=== PATIENT | female | born 1935 | race Caucasian/White ===

== ENCOUNTER 2022-11-28 15:05 | Outpatient (CLI) | payer MEDICARE, SELFPAY ==
[2022-11-28 16:20] LABS: ALT 16 U/L (14-59); AST 16 U/L (15-37); Albumin 4.4 g/dL (3.4-5.0); Alkaline Phosphatase 73 U/L (46-116); Anion Gap 9.5 mmol/L (3-11); BUN 11 mg/dL (7-18); Bilirubin, Total 0.6 mg/dL (0.2-1.0); CO2 27.5 mmol/L (21.0-32.0); CREATININE 0.8 mg/dL (0.55-1.02); Calcium 9.5 mg/dL (8.5-10.1); Chloride 99 mmol/L (98-107); Estimated GFR 71.71 (mL/min/1.73m2); Glucose 134 mg/dL (74-106); PTT Activated 26.5 sec (21.5-31.9); Potassium 3.9 mmol/L (3.5-5.1); Sodium 136 mmol/L (136-145); TSH 2.71 uIU/mL (0.36-3.74); Total Protein 7.1 g/dL (6.4-8.2); Uric Acid 4.4 mg/dL (2.6-6.0)
[2022-11-28 16:24] LABS: Abs Immature Grans 0.03 10^3/uL (0.0-0.06); Absolute Basophil Count 0.07 10^3/uL (0.0-0.2); Absolute Eosinophil Count 0.08 10^3/uL (0.0-0.7); Absolute Lymphocyte Count 0.76 10^3/uL (1.2-3.4); Absolute Monocyte Count 0.53 10^3/uL (0.1-0.8); Absolute Neutrophil Count 7.99 10^3/uL (1.2-6.7); Basophils % 0.7; Eosinophils % 0.8; HCT 41.9 % (36.0-46.0); HGB 14.4 g/dL (11.2-15.7); Immature Grans % 0.3; MCH 29.6 pg (27.0-33.0); MCHC 34.4 % (32.0-36.0); MCV 86 fL (80-95); MPV 10.6 fL (8.0-11.0); Monocytes % 5.6; Neutrophils % 84.6; Platelet Count 601 10^3/uL (130-400); RBC 4.87 10^6/uL (3.93-5.22); RDW 15.6 % (11.7-14.6); RDW-SD 45.4 fL; WBC 9.46 10^3/uL (4.4-10.8)
[2022-11-28 16:28] LABS: C-Reactive Protein < 0.05 mg/dL (0.0-0.3)
[2022-11-28 16:50] LABS: ESR 4 mm/hr (0-30)
== END 2022-11-28 15:06 | disposition home or self-care (01) ==
LOC: LBO 15:08
PROVIDERS: Visit Provider Nurse Practitioner Family
DX: M79.671 Pain in right foot; M79.672 Pain in left foot; R09.89 Other specified symptoms and signs involving the circulatory and respiratory systems; R73.09 Other abnormal glucose
CPT/HCPCS: 36415; 80053; 85652; 84443; 84550; 85025; 85730; 86140; 93971

== ENCOUNTER 2022-11-28 15:11 | Outpatient (CLI) | payer MEDICARE, SELFPAY ==
--- NOTE | 2022-11-28 14:00 | DI.US_ITS ---
Exam(s) US LOWER EXTREMITY VENOUS LT EXAM: US LOWER EXTREMITY VENOUS LT CLINICAL HISTORY: evaluate DVT M79.672 PAIN LEFT FOOT R09.89 M79.673. TECHNIQUE: Lower extremity venous ultrasound performed using grayscale, color-flow, and spectral Do ppler analysis. COMPARISON: No exams were available for comparison FINDINGS: The common femoral, femoral and popliteal veins demonstrate normal compressibility, augmentation, and color Doppler. The posterior tibial veins are patent. No saphenous vein thrombosis or other superfi cial venous thrombosis is seen. No hematoma or Morton's cyst is seen. IMPRESSION: Negative lower extremity ultrasound. No evidence of DVT. DATA REPOSITORY:
== END 2022-11-28 15:31 ==
PROVIDERS: Visit Provider Nurse Practitioner Family
DX: M79.672 Pain in left foot (principal); R09.89 Other specified symptoms and signs involving the circulatory and respiratory systems
CPT/HCPCS: 93971

== ENCOUNTER → 2023-04-15 10:36 | Outpatient (BNVA) | payer MEDICARE, SELFPAY | PROVIDERS: Referring Provider Podiatrist; Visit Provider Physical Therapy Assistant | DX: I73.9 Peripheral vascular disease, unspecified (principal); M79.672 Pain in left foot; M79.671 Pain in right foot | CPT/HCPCS: 93922 ==

== ENCOUNTER → 2023-12-08 07:58 | Outpatient (BNVA) | payer MEDICARE, SELFPAY | PROVIDERS: Visit Provider Podiatrist | DX: M76.61 Achilles tendinitis, right leg (principal); M67.01 Short Achilles tendon (acquired), right ankle; M67.02 Short Achilles tendon (acquired), left ankle; M19.072 Primary osteoarthritis, left ankle and foot; M19.071 Primary osteoarthritis, right ankle and foot; E79.0 Hyperuricemia without signs of inflammatory arthritis and tophaceous disease; M79.671 Pain in right foot; M79.672 Pain in left foot | CPT/HCPCS: 99214; 73630 ==

== ENCOUNTER 2023-12-08 10:34 | Outpatient (CLI) | payer MEDICARE, SELFPAY ==
[2023-12-08 10:12] LABS: Uric Acid 3.5 mg/dL (2.6-6.0)
== END 2023-12-08 10:35 | disposition home or self-care (01) ==
LOC: LBO 10:35
PROVIDERS: Visit Provider Podiatrist
DX: E79.0 Hyperuricemia without signs of inflammatory arthritis and tophaceous disease (principal)
CPT/HCPCS: 36415; 99214; 73630; 84550

== ENCOUNTER → 2023-12-08 10:47 | Outpatient (CLI) | payer MEDICARE, SELFPAY ==
--- NOTE | 2023-12-08 08:30 | DI.RAD_ITS ---
Exam(s) XR FOOT RT COMPLETE EXAM: XR FOOT RT COMPLETE CLINICAL HISTORY: Pain in right heel,achlles tendinitis rt leg, foot pain,m19.072,m76.61,. TECHNIQUE: 2D digital imaging was performed. Three views. COMPARISON: No exams were available for comparison FINDINGS: BONES: No acute fracture is present. No bony destructive lesion is seen. Tiny plantar calcaneal spur . Enthesophyte at the Achilles insertion on the calcaneus. JOINTS: No dislocation present. Moderate hallux valgus. No significant joint space narrowing. SOFT TISSUE: Normal. IMPRESSION: Hallux valgus and heel spurs. DATA REPOSITORY: RADIATION DOSE DELIVERED:
--- NOTE | 2023-12-08 08:30 | DI.RAD_ITS ---
Exam(s) XR FOOT LT COMPLETE EXAM: XR FOOT LT COMPLETE CLINICAL HISTORY: Left midfoot pain,oa,m19.072. TECHNIQUE: 2D digital imaging was performed. Three views. COMPARISON: CR XR FOOT RT COMPLETE from 12/08/2023 FINDINGS: BONES: No acute fracture is present. No bony destructive lesion is seen. Heel spurs. JOINTS: No dislocation present. Moderate hallux valgus. SOFT TISSUE: Normal. IMPRESSION: Hallux valgus and small heel spurs. DATA REPOSITORY: RADIATION DOSE DELIVERED:
== END ==
PROVIDERS: Visit Provider Podiatrist
DX: M19.072 Primary osteoarthritis, left ankle and foot (principal); M76.61 Achilles tendinitis, right leg
CPT/HCPCS: 73630

== ENCOUNTER → 2024-01-06 08:51 | Outpatient (BNVA) | payer MEDICARE, SELFPAY | PROVIDERS: PCP Registered Nurse; Referring Provider Registered Nurse; Visit Provider Podiatrist | DX: M76.61 Achilles tendinitis, right leg (principal); M67.01 Short Achilles tendon (acquired), right ankle; M67.02 Short Achilles tendon (acquired), left ankle; M19.072 Primary osteoarthritis, left ankle and foot; M19.071 Primary osteoarthritis, right ankle and foot; M79.671 Pain in right foot; E79.0 Hyperuricemia without signs of inflammatory arthritis and tophaceous disease; L98.9 Disorder of the skin and subcutaneous tissue, unspecified; M79.672 Pain in left foot | CPT/HCPCS: 99213 ==